=== PATIENT | male | born 1970 | race Hispanic/Latino ===

== ENCOUNTER 2019-02-16 19:20 | Emergency (ER) | payer OTHER, SELFPAY | END 2019-02-16 20:00 | disposition home or self-care (01) | LOC: SCSER 19:20 | DX: M79.672 Pain in left foot (principal) | CPT/HCPCS: 99281 ==

== ENCOUNTER 2022-10-09 06:38 | Day surgery (SDC) | payer OTHER ==
[2022-10-08 11:26] VITALS: BMI 47.4
[2022-10-09] MEDS ORDERED: PROPOFOL 200 MG/20 ML VIAL ONE (08:59)
== END 2022-10-09 10:21 | disposition home or self-care (01) ==
LOC: SDC 06:38
PROVIDERS: ATTEND Internal Medicine Gastroenterology
PROC: 0DBL8ZZ Excision of Transverse Colon, Via Natural or Artificial Opening Endoscopic (ICD-10-PCS; principal; 2022-10-09)
DX: Z12.11 Encounter for screening for malignant neoplasm of colon (principal); D12.3 Benign neoplasm of transverse colon; D12.4 Benign neoplasm of descending colon; K63.5 Polyp of colon; K57.30 Diverticulosis of large intestine without perforation or abscess without bleeding; E66.9 Obesity, unspecified; Z68.42 Body mass index [BMI] 45.0-49.9, adult; Z98.84 Bariatric surgery status
CPT/HCPCS: 88305; J2704